=== PATIENT | male | born 1965 | race Two or more races ===

== ENCOUNTER → 2021-03-18 | Outpatient (CLI) | payer BC ==
--- NOTE | 2021-03-18 14:36 | KCIC ---
EXAM: Chest, 2 views. HISTORY: Bronchitis. COMPARISON: None. FINDINGS: 2 views of the chest are obtained. There is no infiltrate, pleural effusion or pneumothorax . The heart is normal in size. IMPRESSION: No acute pulmonary finding. Electronically signed by: Marlin Conway MD (03/18/2021 2:34 PM) [id number]
== END ==
LOC: KCIC 12:39
PROVIDERS: ATTEND Family Medicine
DX: J40 Bronchitis, not specified as acute or chronic (principal); R05.9 Cough, unspecified
CPT/HCPCS: 71046